=== PATIENT | male | born 1995 | race Caucasian/White ===

== ENCOUNTER 2016-08-15 17:33 | Emergency (ER) | payer OTHER | END 2016-08-15 19:40 | disposition home or self-care (01) | LOC: ER1 17:33 | DX: M23.92 Unspecified internal derangement of left knee (principal); J45.909 Unspecified asthma, uncomplicated; Z79.51 Long term (current) use of inhaled steroids | CPT/HCPCS: 29505; 73564; 73610; 99283; Q0162 ==